=== PATIENT | female | born 1995 | race Caucasian/White ===

== ENCOUNTER 2023-08-02 15:57 | Outpatient (OUT) | payer OTHER, SELFPAY ==
[2023-08-04 04:07] LABS: Progesterone 0.4 ng/mL (.)
== END 2023-08-02 15:58 | disposition home or self-care (01) ==
LOC: LAB 16:02
PROVIDERS: PCP Internal Medicine; Visit Provider Midwife
DX: N92.6 Irregular menstruation, unspecified (principal)
CPT/HCPCS: 36415; 84144

== ENCOUNTER 2024-11-21 21:33 | Emergency (ER) | payer OTHER, SELFPAY ==
[2024-11-21 21:39] VITALS: BP 157/97; PULSE 91; TEMP 36.9; O2SAT 100; BMI 21.2
--- OUTSIDE RECORDS SUMMARY | 2024-11-21 21:57 | XMS_ITS | CCD ---
Author Organization [facility] Care Team Providers Care Document Management Analyst Name Role Phone SARATH, DR PULIDO Admitting Unavailable SARATH, DR PULIDO Attending Unavailable REQUEST, DR NONE LISTED Primary Care Unavaila alis PUENTES, DR WILLIS Hancock Consulting Unavailable SARATH, DR PULIDO Consulting Unavailable Kelle Dumont Unavailable Lurdes Breaux MD Primary Care Provider CINDA ARMSTRONG Admitting Unavailsebastian ARMSTRONG, CINDA BONDS Attending Unavailabl e SAEID, LURDES Primary Care Unavailable CINDA ARMSTRONG Referring Unavailabl e BREAUX, LURDES Primary Care Unavailable JAGDISH, CINDA BONDS Attending Unavailsebastian e JAGDISH, CINDA BONDS Referring Unavailabl e BREAUX, LURDES Primary Care Unavailable CINDA ARMSTRONG Referring Unavailabl e BREAUX, LURDES Primary Care Unavailable JAGDISH, CINDA BONDS Admitting Unavailsebastian ARMSTRONG, CINDA BONDS Attending Unavailabl e BREAUX, LURDES Primary Care Unavailable TOMA, DAVID Rios Admitting Unavailable POOL, DAVID Rios Attending Unavailable SAEID, LURDES Primary Care Unavailable CINDA ARMSTRONG Admitting Unavailsebastian ARMSTRONG, CINDA BONDS Attending Unavailabl e BREAUX, [facility] Primary Care Unavailable Medications Current Medications Medication Drug Class(es) Dates Sig (Normalized) Sig (Original) amoxicillin 500 mg oral capsule (1 source) Penicillin-class Antibacterial Start: 12-18-2022 take 1 capsule by mouth every eight hours Amoxicillin 500 MG 1 capsule Orally three times a day for 10 day(s) Dec, Active benzocaine 200 mg/ml / menthol 5 mg/ml topical spray (1 source) Standardized Chemical Allergen Start: 05-22-2024 Topical, PRN, Pain, Starting on Denise 05/22/24 at 1225, Apply to perineal area. Patient is capable and may self administer at bedside., 1 ml carboprost 0.25 mg/ml injection (1 source) Prostaglandin Analog Start: 05-22-2024 cephalexin 500 mg oral capsule (1 source) Cephalosporin Antibacterial Start: 06-02-2024 take 500 mg by mouth four times daily Cephalexin Active 500 MG PO Four times daily 40 7 June 02, 2024 12:00am w food docusate sodium 100 mg oral capsule (1 source) Start: 05-22-2024 lanolin 1000 mg/ml topical cream (1 source) Start: 05-22-2024 1 ml methylergonovine maleate 0.2 mg/ml injection (1 source) Ergot Derivative Start: 05-22-2024 miSOPROStol 0.1 mg oral tablet (1 source) Prostaglandin E1 Analog Start: 05-22-2024 ondansetron (ZOFRAN-ODT) disintegrating tablet 4 mg (1 source) Start: 05-22-2024 ondansetron (ZOFRAN-ODT) disintegrating tablet 4 mg Vit No.[id number] (Classic ) 28 mg iron- 800 mcg tablet (1 source) Start: 06-02-2024 take 1 tablet by mouth once daily Vit No.[id number] (Classic ) 28 mg iron- 800 mcg tablet Active TAB PO Daily June 02, 2024 12:00am Vit-Fe Fumarate-FA ( 19 PO) (2 sources) Vit-Fe Fumarate-FA ( 19 PO) Take by mouth Active 5 ml sodium chloride 9 mg/ml injection (2 sources) Start: 05-22-2024 Start: 05-20-2024 End: 05-22-2024 5-40 mL, IntraVENous, EVERY 12 HOURS SCHEDULED (2 times per day), First dose on Sun05/20/24 at 2100, Until Discontinued, For Line Patency: Peripheral IV = 5 mL; Midline or Central Line = 10 mL/lumen. If following IV push medication, administer flush at same rate as the IV push. Flush volume is determined by type of infusion therapy being given. For non-viscous solutions use: Peripheral IV = 5 mL Midline or Central Line = 10 mL/lumen For viscous solutions (i.e. blood components, parenteral nutrition, contrast media, or after obtaining blood sample) use: Peripheral IV = 10 mL Midline or Central Line = 20 mL/lumen, Labor and Delivery witch dudley 500 mg/ml medicated pad (1 source) Start: 05-22-2024 Topical, PRN, Hemorrhoids, Starting on Sun05/22/24 at 1225, Apply to perineal area. Patient is capable and may self administer at bedside., Completed/Discontinued Medications Medication Drug Class(es) Dates Sig (Normalized) Sig (Original) acetaminophen 500 mg oral tablet (2 sources) Start: 05-22-2024 1,000 mg, Oral, EVERY 6 HOURS PRN, Starting on Sun05/22/24 at 1225, Until Discontinued, Pain Mild (1-3), Pain Moderate (4-6), Maximum dose of acetaminophen is 4000mg from all sources in 24 hours. Alternate ibuprofen and acetaminophen every 4 hours., Start: 05-20-2024 End: 05-22-2024 650 mg, Oral, EVERY 4 HOURS PRN, Starting on Sun05/20/24 at 1957, Until Sun05/22/24 at 1225, Pain Mild (1-3), Fever, Fever >100.5 F (38 C), Maximum dose of acetaminophen is 4000 mg from all sources in 24 hours., Labor and Delivery calcium chloride 0.0014 meq/ml / potassium chloride 0.004 meq/ml / sodium chloride 0.103 meq/ml / sodium lactate 0.028 meq/ml injectable solution (1 source) Start: 05-20-2024 End: 05-22-2024 IntraVENous, at 125 mL/hr, CONTINUOUS, Starting on Sun05/20/24 at 2030, Labor and Delivery dinoprostone 10 mg drug implant (2 sources) Prostaglandin Analog Start: 05-21-2024 End: 05-21-2024 10 mg, Vaginal, ONCE, 1 dose, On Sun05/21/24 at 1000, Please select a reason the therapeutic interchange was not accepted: Other (Please Comment), Comment why not applicable: IUGR - intrauterine growth restriction Start: 05-20-2024 End: 05-20-2024 10 mg, Vaginal, ONCE, 1 dose , On Sun05/20/24 at 2030, Please select a reason the therapeutic interchange was not accepted: Other (Please Comment), Comment why not applicable: IUGR - intrauterine growth restriction hydrOXYzine pamoate 50 mg oral capsule (1 source) Antihistamine Start: 05-21-2024 End: 05-21-2024 take 1 dose by mouth once 50 mg, Oral, ONCE, 1 dose, On Sun05/21/24 at 2130 Start: 05-21-2024 End: 05-21-2024 take 1 dose by mouth once 50 mg, Oral, ONCE, 1 dose, O n Sun05/21/24 at 2130 ibuprofen 800 mg oral tablet (1 source) Nonsteroidal Anti-inflammatory Drug Start: 05-22-2024 800 mg, Oral, CARYN RY 8 HOURS PRN, Starting on Denise 05/22/24 at 1225, Until Discontinued, Pain Mild (1-3), Pain Moderate (4-6), Once tolerating PO, discontinue Ketorolac and begin ibuprofen 8 hours after the final dose of Ketotolac. Alternate ibuprofen and acetaminophen every 4 hours., lidocaine hydrochloride 20 mg/ml mucous membrane topical solution (2 sources) Antiarrhythmic, Amide Local Anesthetic Start: 05-22-2024 End: 05-22-2024 15 mL, Vaginal, ONCE, 1 dose, On Sun05/22/24 at 1100 Start: 05-22-2024 End: 05-22-2024 1 dose, Starting on Sun at 1041, Until Denise 05/22/24 at 1039, Sisi Dias: cabinet override, Sisi Dias: cabinet override oxytocin (PITOCIN) 30 units in 500 mL infusion (2 sources) Start: 05-22-2024 End: 05-22-2024 1-24 quoc-units/min (1-24 m L/hr), IntraVENous, CONTINUOUS, Starting on Sun05/22/24 at 0500, Until Denise 05/22/24 at 1225, Begin infusion at 1 quoc-unit/min (1 quoc-unit per min = 1 mL per hour) Then increase by 2 quoc-units/min as needed, no faster than every 30 minutes, until labor is achieved. Labor is defined as contractions every 2-3 minutes with cervical changes or Holden units (MVU) greater than 200 in a 10-minute window. Maximum infusion rate: 20 quoc-unit/min. Contact provider if maximum rate does not achieve desired response. Provider may order alternative titration goal or other clinically appropriate goal of titration rate (s). Smaller titration increments of 1 quoc-units/min, not faster than every 30 minutes, may be used when approaching therapeutic goal. Start: 05-20-2024 oxytocin (CHELLE MIGUEL) 30 units in 500 mL infusion Problems Active Problems Problem Classification Problem Date Documented Date Episodic/Chronic Menstrual disorders (6 sources) Irregular menstruation, unspecified; Translations: [Amenorrhea] Onset: 06-17-2022 Chronic Other and delivery including normal (11 sources) Normal labor; Translations: [Encounter for full-term uncomplicated delivery] Onset: 04-28-2024 Resolved: 05-24-2024 05-24-2024 Episodic Other upper respiratory infections (2 sources) Acute pharyngitis, unspecified; Translations: [Streptococcal pharyngitis] Episodic Ovarian cyst (1 source) Other ovarian cyst, right side; Translations: [OTHER OVARIAN CYST RIGHT SIDE] Onset: 06-20-2022 Episodic Unclassified (2 sources) Non-stress Test; Translations: [Non-stress Test] Onset: 05-08-2024 Past or Other Problems Problem Classification Problem Date Documented Da te Episodic/Chronic Abdominal pain (2 sources) Unspecified abdominal pain; Translations: [Unspecified abdominal pain] Onset: 04-24-2024 Episodic Other complications of (2 sources) Complication of , childbirth and/or the puerperium; Translations: [Other specified related conditions, unspecified trimester] Onset: 04-24-2024 Resolved: 05-24-2024 05-24-2024 Episodic Other complications of (2 sources) Poor growth affecting management; Translations: [Maternal care for other known or suspected poor growth, third trimester, not applicable or unspecified] Onset: 05-09-2024 Resolved: 05-24-2024 05-24-2024 Episodic Other complications of (2 sources) Outcome of delivery, unspecified; Translations: [Outcome of delivery, unspecified] Onset: 05-20-2024 Episodic Other complications of (2 sources) Other specified related conditions, unspecified trimester; Translations: [Other specified related conditions, unspecified trimester] Onset: 04-24-2024 Episodic Residual codes; unclassified (1 source) 38 weeks gestation of ; Translations: [38 weeks gestation of ] Onset: 05-08-2024 Episodic Results Test Name Value Interpretation Reference Range Facility Chlamydia/GC DNA, Uron 11-13 Chlamydia Probe, Ur Negative Normal NEG [facility] Comment on above: Result Comment: CHLA MYDIA TRACHOMATIS DNA not detected by nucleic acid amplification. This test is intended for medical purposes only and is not valid for the evaluation of suspected sexual abuse or for other forensic purposes. In certain contexts, culture may be required to meet applicable laws and regulations for diagnosis of C. trachomatis and N. gonorrhoeae infections. Per 2014 CDC recommendations, this test does not include confirmation of positive results by an alternative nucleic acid target. Performed By: #### U CGP #### [address] [id number] Coffee Blender: Omkar Shah MD Gonorrhea Probe, Ur Negative Normal NEG [facility] Comment on above: Result Comment: NEIS SERIA GONORRHOEAE DNA not detected by nucleic acid amplification. This test is intended for medical purposes only and is not valid for the evaluation of suspected sexual abuse or for other forensic purposes. In certain contexts, culture may be required to meet applicable laws and regulations for diagnosis of C. trachomatis and N. gonorrhoeae infections. Per 2014 CDC recommendations, this test does not include confirmation of positive results by an alternative nucleic acid target. Performed By: #### U CGP #### [address] [id number] Coffee Blender: Omkar Shah MD Cult,Urineon 11-13-2024 Cult,Urine Specimen Description .CLEAN CATCH URINE Special Requests Site: Urine Culture NO SIGNIFICANT GROWTH Report Status FINAL 11/13/2024 Normal [facility] Comment on above: Performed By: #### U RC #### [address] [id number] Coffee Blender: Omkar Shah MD [facility] [address] [place] [address] Coffee Blender: Willis Hough MD Profileon T.pallidum Ab Screen Non-Reactive Normal NR [facility] Comment on above: Result Comment: T. pallidum antibodies are not detected. There is no serological evidence of infection with T. pallidum (early primary syphilis cannot be excluded). Retest in 2-4 weeks if syphilis is clinically suspect. Performed By: #### P RENAT #### [facility] [address] [place] [address] Coffee Blender: Omkar Shah MD [facility] [address] [place] [address] Coffee Blender: Willis Hough MD Profile Ion 025 Basophils (Bld) [#/Vol] 0.04 10*3/uL [facility] Basophils/100 WBC (Bld) 1 % 0 - 2 % B on [facility] Eosinophils (Bld) [#/Vol] 0.03 10*3/uL [facility] Eosinophils/100 WBC (Bld) 0 % Low 1 - 4 % [facility] Erythrocyte distribution width (RBC) [Ratio] 12.4 % 11.8 - 14.4 % [facility] HBV surface Ag IA Ql Non-Reactive NONREACTIVE B [facility] Hematocrit (Bld) [Volume fraction] 37.5 % 36.3 - 47.1 % [facility] Hemoglobin (Bld) [Mass/Vol] 13.1 g/dL 11.9 - 15.1 g/dL [facility] Immature granulocytes (Bld) [#/Vol] 0.03 10*3/uL [facility] Immature granulocytes/100 WBC (Bld) 0 % 0 [facility] Interpretation and review of laboratory results Abnormal [facility] Lymphocytes/100 WBC (Bld) 18 % Low 24 - 43 % [facility] Lymphocytes/100 WBC (Bld) 1.56 % [facility] MCH (RBC) [Entitic mass] 30.1 pg 25. 2 - 33.5 pg [facility] MCHC (RBC) [Mass/Vol] 34.9 g/dL High 28.4 - 34.8 g/dL [facility] MCV (RBC) [Entitic vol] 86.2 fL 82.6 - 102.9 fL [facility] Monocytes/100 WBC (Bld) 6 % 3 - 12 % B on [facility] Monocytes/100 WBC (Bld) 0.53 % B on [facility] Neutrophils/100 WBC (Bld) 75 % High 36 - 65 % [facility] Nucleated RBC/100 WBC (Bld) [Ratio] 0.0 % 0.0 per 100 WBC [facility] Platelet mean volume (Bld) [Entitic vol] 11.0 fL 8.1 - 13.5 fL [facility] Platelets (Bld) [#/Vol] 307 10*3/uL [facility] RBC (Bld) [#/Vol] 4.35 10*6/uL 3.95 - 5.1 1 m/uL [facility] Rubella virus IgG IA Ql 49.7 IU/mL B on [facility] Comment on above: <10 NON REACTIVE Negative for Anti-Rubella IgG >=10 REACTIVE Positive for Anti Rubella IgG The presence of IgG antibody to Rubella virus is an indication of previous exposure either by prior infection or vaccination. Segmented neutrophils/100 WBC (Bld) 6.30 % [facility] T. pallidum Ab IA Ql (S) Non-Reactive NONREACTI VE [facility] Comment on above: T. pallidum antibodies are not detected. There is no serological evidence of infection with T. pallidum (early primary syphilis cannot be excluded). Retest in 2-4 weeks if syphilis is clinically suspect. WBC other (Bld) [#/Vol] 8.5 B on [facility] HIV Ag/Abon 11-12-2024 HIV Ag/Ab Non-Reactive Normal NR [facility] Comment on above: Result Comment: No l aboratory evidence of HIV infection. If acute HIV infection is suspected, consider testing for HIV-1 RNA. Performed By: #### R OGBS #### [facility] [address] [place] [address] Coffee Blender: Omkar Shah MD [facility] [address] [place] [place] [address] Coffee Blender: Willis Hough MD HIV Screenon 11-12-2024 HIV 1+2 Ab+HIV1 p24 Ag IA Ql Non-Reactive NONREACTIVE [facility] Comment on above: No laboratory eviden ce of HIV infection. If acute HIV infection is suspected, consider testing for HIV-1 RNA. [facility] Hep C Abon 11-12-2024 Hep C Ab Non-Reactive Normal [facility] Comment on above: Result Comment: The hepatitis C procedure used in our laboratory is a Chemiluminescent test specific for three recombinant HCV antigens. A negative anti-HCV result indicates that the antibodies to hepatitis C virus are not present at this time. Individuals with reactive anti-HCV should be considered infected and infectious until proven otherwise. Confirmation of all equivocal or reactive results is recommended by ordering HCV RNA by PCR. Performed By: #### A HCV, HIVCMB #### [facility] [employer] [address] [place] [id number] Coffee Blender: Omkar Shah MD Hepatitis C Antibodyon 11-12 HCV Ab IA Ql Non-Reactive NONREACTIVE [facility] Comment on above: The hepatitis C procedure used in our laboratory is a Chemiluminescent test specific for three recombinant HCV antigens. A negative anti-HCV result indicates that the antibodies to hepatitis C virus are not present at this time. Individuals with reactive anti-HCV should be considered infected and infectious until proven otherwise. Confirmation of all equivocal or reactive results is recommended by ordering HCV RNA by PCR. [facility] Profileon Hep B Surf Ag Non-Reactive Normal [facility] Comment on above: Performed By: #### P RENAT #### [facility] [employer] [facility] [place], [place] [id number] Coffee Blender: Omkar Shah MD [address] [place] [address] Coffee Blender: Willis Hough MD Rubella Ab, IgG 49.7 IU/mL [facility] Comment on above: Result Comment: <10 NON REACTIVE Negative for Anti-Rubella IgG >=10 REACTIVE Positive for Anti Rubella IgG The presence of IgG antibody to Rubella virus is an indication of previous exposure either by prior infection or vaccination. Performed By: #### P RENAT #### [address] [address] Coffee Blender: Omkar Shah MD [address] [place] [id number] Coffee Blender: Willis Hough MD Abs. Basophil 0.04 k/uL Normal 0.00-0.20 [facility] Comment on above: Performed By: #### P RENAT #### [address] [address] Coffee Blender: Omkar Shah MD [address] [place] [address] Coffee Blender: Willis Hough MD Abs.Imm.Granulocyte 0.03 k/uL Normal 0.00-0.30 [facility] Comment on above: Performed By: #### P RENAT #### [address] [address] Coffee Blender: Omkar Shah MD [address] [place] [address] Coffee Blender: Willis Hough MD Abs.Neutrophil (Seg) 6.30 k/uL Normal 1.50-8.10 [facility] Comment on above: Performed By: #### P RENAT #### [address] [address] Coffee Blender: Omkar Shah MD [address] [place] [address] Coffee Blender: Willis Hough MD Basophils/100 WBC (Bld) 1 % Normal 0-2 [facility] Comment on above: Performed By: #### P RENAT #### [address] [address] Coffee Blender: Omkar Shah MD [address] [place] [id number] Coffee Blender: Willis Hough MD Eosinophils (Bld) [#/Vol] 0.03 10*3/uL Normal 0.00-0.44 [facility] Comment on above: Performed By: #### P RENAT #### [address] [address] Coffee Blender: Omkar Shah MD [address] [place] [phone] Coffee Blender: Willis Hough MD Eosinophils/100 WBC (Bld) 0 % Low 1-4 [facility] Comment on above: Performed By: #### P RENAT #### [address] [address] Coffee Blender: Omkar Shah MD [address] [place] [phone] Coffee Blender: Willis Hough MD Erythrocyte distribution width (RBC) [Ratio] 12.4 % Normal 11.8-14.4 [facility] Comment on above: Performed By: #### P RENAT #### [address] [address] Coffee Blender: Omkar Shah MD [address] [place] [phone] Coffee Blender: Willis Hough MD Hematocrit (Bld) [Volume fraction] 37.5 % Normal 36.3-47.1 [facility] Comment on above: Performed By: #### P RENAT #### [address] [address] Coffee Blender: Omkar Shah MD [address] [place] [phone] Coffee Blender: Willis Hough MD Hemoglobin (Bld) [Mass/Vol] 13.1 g/dL Normal 11.9-15.1 [facility] Comment on above: Performed By: #### P RENAT #### [place] [id number] [place] [address] Coffee Blender: Omkar Shah MD [facility] [address] [place] [address] Dr. [place] [phone] Coffee Blender: Willis Hough MD Immature granulocytes/100 WBC (Bld) 0 % Normal 0 [facility] Comment on above: Performed By: #### P RENAT #### [address] [address] Coffee Blender: Omkar Shah MD [facility] [address] [place] [address] Dr. [place] [phone] Coffee Blender: Willis Hough MD Lymphocytes (Bld) [#/Vol] 1.56 10*3/uL Normal 1.10-3.70 [facility] Comment on above: Performed By: #### P RENAT #### [address] [address] Coffee Blender: Omkar Shah MD [facility] [address] [place] [address] [place] [address] Coffee Blender: Willis Hough MD Lymphocytes/100 WBC (Bld) 18 % Low 24-43 [facility] Comment on above: Performed By: #### P RENAT #### [address] [address] Coffee Blender: Omkar Shah MD [facility] [address] [place] [address] [place] [address] Coffee Blender: Willis Hough MD MCH (RBC) [Entitic mass] 30.1 pg Normal 25.2-33.5 [facility] Comment on above: Performed By: #### P RENAT #### [address] [address] Coffee Blender: Omkar Shah MD [address] [place] [phone] Coffee Blender: Willis Hough MD MCHC (RBC) [Mass/Vol] 34.9 g/dL High 28.4-34.8 [facility] Comment on above: Performed By: #### P RENAT #### [address] [address] Coffee Blender: Omkar Shah MD [address] [place] [phone] Coffee Blender: Willis Hough MD MCV (RBC) [Entitic vol] 86.2 fL Normal 82.6-102.9 [facility] Comment on above: Performed By: #### P RENAT #### [address] [address] Coffee Blender: Omkar Shah MD [address] [place] [address] Coffee Blender: Willis Hough MD Monocytes (Bld) [#/Vol] 0.53 10*3/uL Normal 0.10-1.20 [facility] Comment on above: Performed By: #### P RENAT #### [address] [address] Coffee Blender: Omkar Shah MD [address] [place] [phone] Coffee Blender: Willis Hough MD Monocytes/100 WBC (Bld) 6 % Normal 3-12 [facility] Comment on above: Performed By: #### P RENAT #### [address] [address] Coffee Blender: Omkar Shah MD [address] [place] [phone] Coffee Blender: Willis Hough MD Neutrophil (Seg) 75 % High 36-65 [facility] Comment on above: Performed By: #### P RENAT #### [place] [id number] [place] [address] Coffee Blender: Omkar Shah MD [address] [place] [address] Coffee Blender: Willis Hough MD NRBC Automated 0.0 per 100 WBC Normal 0.0 [facility] Comment on above: Performed By: #### P RENAT #### [address] [address] Coffee Blender: Omkar Shah MD [address] [place] [address] Coffee Blender: Willis Hough MD Platelet mean volume (Bld) [Entitic vol] 11.0 fL Normal 8.1-13.5 [facility] Comment on above: Performed By: #### P RENAT #### [address] [address] Coffee Blender: Omkar Shah MD [address] [place] [phone] Coffee Blender: Willis Hough MD Platelets (Bld) [#/Vol] 307 10*3/uL Normal 138-453 [facility] Comment on above: Performed By: #### P RENAT #### [address] [address] Coffee Blender: Omkar Shah MD [address] [place] [phone] Coffee Blender: Willis Hough MD RBC (Bld) [#/Vol] 4.35 10*6/uL Normal 3.95-5.11 [facility] Comment on above: Performed By: #### P RENAT #### [address] [address] Coffee Blender: Omkar Shah MD [address] [place] [phone] Coffee Blender: Willis Hough MD WBC (Bld) [#/Vol] 8.5 10*3/uL Normal 3.5-11.3 [facility] Comment on above: Performed By: #### P YESSY #### [facility] [address] [place] [address] Coffee Blender: Omkar Shah MD [facility] [address] [place] [address] Coffee Blender: Willis Hough MD CBC auto differentialon 09-0 Basophils (Bld) [#/Vol] B ON [facility] Basophils/100 WBC (Bld) 0 % 0 - 2 % B ON [facility] Eosinophils (Bld) [#/Vol] 0.04 10*3/uL [facility] Eosinophils/100 WBC (Bld) 0 % Low 1 - 4 % [facility] Erythrocyte distribution width (RBC) [Ratio] 12.6 % 11.8 - 14.4 % [facility] Hematocrit (Bld) [Volume fraction] 36.7 % 36.3 - 47.1 % [facility] Hemoglobin (Bld) [Mass/Vol] 13.0 g/dL 11.9 - 15.1 g/dL [facility] Immature granulocytes (Bld) [#/Vol] [facility] Immature granulocytes/100 WBC (Bld) 0 % 0 [facility] Interpretation and review of laboratory results Abnormal [facility] Lymphocytes/100 WBC (Bld) 22 % Low 24 - 43 % [facility] Lymphocytes/100 WBC (Bld) 1.99 % [facility] MCH (RBC) [Entitic mass] 31.3 pg 25. 2 - 33.5 pg [facility] MCHC (RBC) [Mass/Vol] 35.4 g/dL High 28.4 - 34.8 g/dL [facility] MCV (RBC) [Entitic vol] 88.2 fL 82.6 - 102.9 fL [facility] Monocytes/100 WBC (Bld) 6 % 3 - 12 % [facility] Monocytes/100 WBC (Bld) 0.57 % [facility] Neutrophils/100 WBC (Bld) 71 % High 36 - 65 % [facility] Nucleated RBC/100 WBC (Bld) [Ratio] 0.0 % 0.0 per 100 WBC [facility] Platelet mean volume (Bld) [Entitic vol] 10.4 fL 8.1 - 13.5 fL [facility] Platelets (Bld) [#/Vol] 227 10*3/uL [facility] RBC (Bld) [#/Vol] 4.16 10*6/uL 3.95 - 5.1 1 m/uL [facility] Segmented neutrophils/100 WBC (Bld) 6.56 % [facility] WBC other (Bld) [#/Vol] 9.2 B ON [facility] CBC with Diffon 05-20-2024 Abs. Basophil <0.03 Normal 0.00-0.20 [facility] Comment on above: Performed By: #### R OGBS #### [id number] [place] [address] Coffee Blender: Omkar Shah MD [facility] [address] [place] [address] Dr. [place] [phone] Coffee Blender: Willis Hough MD Abs.Imm.Granulocyte <0.03 Normal 0.00-0.30 [facility] Comment on above: Performed By: #### R OGBS #### [facility] [address] [place] [address] Coffee Blender: Omkar Shah MD [facility] [address] [place] [address] [place] [address] Coffee Blender: Willis Hough MD Abs.Neutrophil (Seg) 6.56 k/uL Normal 1.50-8.10 [facility] Comment on above: Performed By: #### R OGBS #### [address] [place] [address] Coffee Blender: Omkar Shah MD [address] [place] [phone] Coffee Blender: Willis Hough MD Basophils/100 WBC (Bld) 0 % Normal 0-2 [facility] Comment on above: Performed By: #### R OGBS #### [address] [address] Coffee Blender: Omkar Shah MD [address] [place] [phone] Coffee Blender: Willis Hough MD Eosinophils (Bld) [#/Vol] 0.04 10*3/uL Normal 0.00-0.44 [facility] Comment on above: Performed By: #### R OGBS #### [address] [address] Coffee Blender: Omkar Shah MD [address] [place] [phone] Coffee Blender: Willis Hough MD Eosinophils/100 WBC (Bld) 0 % Low 1-4 [facility] Comment on above: Performed By: #### R OGBS #### [address] [address] Coffee Blender: Omkar Shah MD [address] [place] [phone] Coffee Blender: Willis Hough MD Erythrocyte distribution width (RBC) [Ratio] 12.6 % Normal 11.8-14.4 [facility] Comment on above: Performed By: #### R OGBS #### [address] [address] Coffee Blender: Omkar Shah MD [address] [place] [phone] Coffee Blender: Willis Hough MD Hematocrit (Bld) [Volume fraction] 36.7 % Normal 36.3-47.1 [facility] Comment on above: Performed By: #### R OGBS #### [facility] [address] [place] [address] Coffee Blender: Omkar Shah MD [facility] [address] [place] [address] Dr. [place], [place] [phone] Coffee Blender: Willis Hough MD Hemoglobin (Bld) [Mass/Vol] 13.0 g/dL Normal 11.9-15.1 [facility] Comment on above: Performed By: #### R OGBS #### [address] [address] Coffee Blender: Omkar Shah MD [facility] [address] [place] [address] [place] [address] Coffee Blender: Willis Hough MD Immature granulocytes/100 WBC (Bld) 0 % Normal 0 [facility] Comment on above: Performed By: #### R OGBS #### [address] [address] Coffee Blender: Omkar Shah MD [facility] [address] [place] [address] Dr. [place] [phone] Coffee Blender: Willis Hough MD Lymphocytes (Bld) [#/Vol] 1.99 10*3/uL Normal 1.10-3.70 [facility] Comment on above: Performed By: #### R OGBS #### [address] [address] Coffee Blender: Omkar Shah MD [facility] [address] [place] [address] Dr. [place] [phone] Coffee Blender: Willis Hough MD Lymphocytes/100 WBC (Bld) 22 % Low 24-43 [facility] Comment on above: Performed By: #### R OGBS #### [address] [address] Coffee Blender: Omkar Shah MD [facility] [address] [place] [address] Dr. [place] [phone] Coffee Blender: Willis Hough MD MCH (RBC) [Entitic mass] 31.3 pg Normal 25.2-33.5 [facility] Comment on above: Performed By: #### R OGBS #### [address] [id number] Coffee Blender: mOkar Shah MD [address] [place] [phone] Coffee Blender: Willis Hough MD MCHC (RBC) [Mass/Vol] 35.4 g/dL High 28.4-34.8 [facility] Comment on above: Performed By: #### R OGBS #### [address] [address] Coffee Blender: Omkar Shah MD [address] [place] [phone] Coffee Blender: Willis Hough MD MCV (RBC) [Entitic vol] 88.2 fL Normal 82.6-102.9 [facility] Comment on above: Performed By: #### R OGBS #### [address] [address] Coffee Blender: Omkar Shah MD [address] [place] [phone] Coffee Blender: Willis Hough MD Monocytes (Bld) [#/Vol] 0.57 10*3/uL Normal 0.10-1.20 [facility] Comment on above: Performed By: #### R OGBS #### [address] [address] Coffee Blender: Omkar Shah MD [address] [place] [address] Coffee Blender: Willis Hough MD Monocytes/100 WBC (Bld) 6 % Normal 3-12 [facility] Comment on above: Performed By: #### R OGBS #### [address] [place] [address] Coffee Blender: Omkar Shah MD [facility] [address] [place] [address] Dr. [place], [place] [phone] Coffee Blender: Willis Hough MD Neutrophil (Seg) 71 % High 36-65 [facility] Comment on above: Performed By: #### R OGBS #### [address] [address] Coffee Blender: Omkar Shah MD [facility] [address] [place] [address] Dr. [place] [phone] Coffee Blender: Willis Hough MD NRBC Automated 0.0 per 100 WBC Normal 0.0 [facility] Comment on above: Performed By: #### R OGBS #### [address] [address] Coffee Blender: Omkar Shah MD [facility] [address] [place] [address] Dr. [place] [phone] Coffee Blender: Willis Hough MD Platelet mean volume (Bld) [Entitic vol] 10.4 fL Normal 8.1-13.5 [facility] Comment on above: Performed By: #### R OGBS #### [address] [address] Coffee Blender: Omkar Shah MD [facility] [address] [place] [address] [place] [address] Coffee Blender: Willis Hough MD Platelets (Bld) [#/Vol] 227 10*3/uL Normal 138-453 [facility] Comment on above: Performed By: #### R OGBS #### [address] [address] Coffee Blender: Omkar Shah MD [facility] [address] [place] [address] [place] [address] Coffee Blender: Willis Hough MD RBC (Bld) [#/Vol] 4.16 10*6/uL Normal 3.95-5.11 [facility] Comment on above: Performed By: #### R OGBS #### [facility] [address] [place] [address] Coffee Blender: Omkar Shah MD [facility] [address] [place] [address] [place] [address] Coffee Blender: Willis Hough MD WBC (Bld) [#/Vol] 9.2 10*3/uL Normal 3.5-11.3 [facility] Comment on above: Performed By: #### R OGBS #### [facility] [address] [place] [address] Coffee Blender: Omkar Shah MD [facility] [address] [place] [address] [place] [address] Coffee Blender: Willis Hough MD TYPE AND SCREENon 05-20-2024 ABO and Rh group Nom (Bld) Blood group O Rh(D) positive [facility] Arm Band Number [id number] [facility] Blood Bank Sample Expiration 05/23/2024,2359 [facility] Blood group antibodies identified Nom Negative [facility] Type + Screenon 05-20-2024 Type + Screen Sample Expiration 05/23/2024,2359 Arm Band Number [id number] ABO/Rh(D) O POSITIVE Antibody Screen NEGATIVE Normal [facility] Comment on above: Performed By: #### T YS #### [facility] [address] [place] [address] [place] [address] Coffee Blender: Willis Hough MD US BIOPHYS PROFILE W N ON STRESSon 05-17-2024 US BIOPHYS PROFILE W NON STRESS EXAMINATION: 05/12/2024. 05/17/2024 TECHNIQUE: ULTRASOUND BIOPHYSICAL PROFILE WITH NON-STRESS TEST COMPARISON: 05/08/2024. 05/12/2024. HISTORY: ORDERING SYSTEM PROVIDED HISTORY: IUGR TECHNOLOGIST PROVIDED HISTORY: IUGR FINDINGS: BIOPHYSICAL PROFILE: Tone: 2/2 Gross Body: 2/2 Breathin/2 Qualitative Fluid: 2/2 Biophysical Profile Score: 8/8 OTHER FINDINGS: Single intrauterine in cephalic presentation. cardiac activity at 130 beats per minute. Amniotic fluid volume is normal with an index of 14.4 cm IMPRESSION: biophysical profile score 8 of 8. Interpreted by: Willis Draper MD Signed by: Willis Draper MD 05/17/24 Final result Normal [facility] US OB 14 PLUS WEEKS SINGLE O R FIRST GESTATIONon 05-09-2024 US OB 14 PLUS WEEKS SINGLE OR FIRST GESTATION EXAMINATION: TRANSABDOMINAL SECOND/THIRD TRIMESTER OBSTETRIC PELVIC ULTRASOUND WITH COLOR DOPPLER FLOW 05/08/2024 2:22 pm TECHNIQUE: TRANSABDOMINAL PELVIC ULTRASOUND WITH COLOR DOPPLER FLOW COMPARISON: 03/13/2024 HISTORY: ORDERING SYSTEM PROVIDED HISTORY: 38 weeks gestation of TECHNOLOGIST PROVIDED HISTORY: 38 wk gestation for EFW FINDINGS: GENERAL OBSERVATIONS: : Single CARDIAC ACTIVITY: Yes HEART RATE: 121 beats per minute BODY AND LIMB MOVEMENTS: Yes POSITION: Cephalic PLACENTA LOCATION: Anterior BART: 13.7 ESTIMATED AGE: BY LMP: 37 weeks, 5 days CURRENT US: 36 weeks, 1 day ESTIMATED WEIGHT: 2516 g grams, 5%tile MEASUREMENTS: BPD: 9.36 cm, 38 weeks, 1 day; 79.7%tile HEAD CIRCUMFERENCE: 33.69 cm, 38 weeks, 4 days; 50.1%tile ABD. CIRCUMFERENCE: 29.86 cm, 33 weeks, 6 days; <3%tile FEMUR LENGTH: 6.62 cm, 34 weeks, 1 day; <3%tile FL/BPD 70.76 (71.0-87.0) HC/AC 01.13 ( 0.92-1.08) FL/HC 19.66 (20.20-22.17) CERVICAL LENGTH: 4.09 cm IMPRESSION: A single live intrauterine with estimated gestational age of 36 weeks, 1 day by ultrasound. Age by dates is 37 weeks, 5 days. Asymmetric growth in head and body measurements as noted above. The estimated weight is 2516 g. Interpreted by: Trevor Trevino MD Signed by: Trevor Trevino MD 05/09/24 Final result Normal [facility] Rule Out Grp.B Strepon 05-02 Rule Out Grp.B Strep Specimen Description .VAGINA Special Requests Site: Genital Culture NEGATIVE FOR GROUP B STREPTOCOCCI Report Status FINAL 05/02/2024 Normal [facility] Comment on above: Performed By: #### R OGBS #### [facility] [address] [place] [address] Coffee Blender: Omkar Shah MD [facility] [address] [place] [address] [place] [address] Coffee Blender: Willis Hough MD CBC with Diffon 04-24-2024 Abs. Basophil <0.03 Normal 0.00-0.20 [facility] Comment on above: Performed By: #### C DP, CP #### [address] [place], [place] [phone] Coffee Blender: Willis Hough MD Abs.Imm.Granulocyte <0.03 Normal 0.00-0.30 [facility] Comment on above: Performed By: #### C DP, CP #### [address] [place], [place] [phone] Coffee Blender: Willis Hough MD Abs.Neutrophil (Seg) 6.44 k/uL Normal 1.50-8.10 [facility] Comment on above: Performed By: #### C DP, CP #### [address] [place] [address] Coffee Blender: Willis Hough MD Basophils/100 WBC (Bld) 0 % Normal 0-2 [facility] Comment on above: Performed By: #### C DP, CP #### [address] [place], [place] [phone] Coffee Blender: Willis Hough MD Eosinophils (Bld) [#/Vol] 0.05 10*3/uL Normal 0.00-0.44 [facility] Comment on above: Performed By: #### C DP, CP #### [facility] [address] [place] [address] Dr. [place], [place] [phone] Coffee Blender: Willis Hough MD Eosinophils/100 WBC (Bld) 1 % Normal 1-4 [facility] Comment on above: Performed By: #### C DP, CP #### [address] [place], [facility]83 Coffee Blender: Willis Hough MD Erythrocyte distribution width (RBC) [Ratio] 12.7 % Normal 11.8-14.4 [facility] Comment on above: Performed By: #### C DP, CP #### [address] [place], [facility]83 Coffee Blender: Willis Hough MD Hematocrit (Bld) [Volume fraction] 38.7 % Normal 36.3-47.1 [facility] Comment on above: Performed By: #### C DP, CP #### [address] [place], [facility]83 Coffee Blender: Willis Hough MD Hemoglobin (Bld) [Mass/Vol] 13.8 g/dL Normal 11.9-15.1 [facility] Comment on above: Performed By: #### C DP, CP #### [address] [place], [facility]83 Coffee Blender: Willis Hough MD Immature granulocytes/100 WBC (Bld) 0 % Normal 0 [facility] Comment on above: Performed By: #### C DP, CP #### [facility] [address] [place] [address] Dr. [place], [facility]83 Coffee Blender: Willis Hough MD Lymphocytes (Bld) [#/Vol] 1.78 10*3/uL Normal 1.10-3.70 [facility] Comment on above: Performed By: #### C DP, CP #### [address] [place], [facility]83 Coffee Blender: Willis Hough MD Lymphocytes/100 WBC (Bld) 20 % Low 24-43 [facility] Comment on above: Performed By: #### C DP, CP #### [address] [place] [address] Coffee Blender: Willis Hough MD MCH (RBC) [Entitic mass] 31.4 pg Normal 25.2-33.5 [facility] Comment on above: Performed By: #### C DP, CP #### [address] [place] [address] Coffee Blender: Willis Hough MD MCHC (RBC) [Mass/Vol] 35.7 g/dL High 28.4-34.8 [facility] Comment on above: Performed By: #### C DP, CP #### [address] [place] [address] Coffee Blender: Willis Hough MD MCV (RBC) [Entitic vol] 88.2 fL Normal 82.6-102.9 [facility] Comment on above: Performed By: #### C DP, CP #### [address] [place] [address] Coffee Blender: iWllis Hough MD Monocytes (Bld) [#/Vol] 0.49 10*3/uL Normal 0.10-1.20 [facility] Comment on above: Performed By: #### C DP, CP #### [address] [place], [place] [phone] Coffee Blender: Willis Hough MD Monocytes/100 WBC (Bld) 6 % Normal 3-12 [facility] Comment on above: Performed By: #### C DP, CP #### [address] [place] [address] Coffee Blender: Willis Hough MD Neutrophil (Seg) 73 % High 36-65 [facility] Comment on above: Performed By: #### C DP, CP #### [facility] [address] [place], [place] [phone] Coffee Blender: Willis Hough MD NRBC Automated 0.0 per 100 WBC Normal 0.0 [facility] Comment on above: Performed By: #### C DP, CP #### [facility] [address] [place], [facility]83 Coffee Blender: Willis Hough MD Platelet mean volume (Bld) [Entitic vol] 10.2 fL Normal 8.1-13.5 [facility] Comment on above: Performed By: #### C DP, CP #### [facility] [address] [place], [facility]83 Coffee Blender: Willis Hough MD Platelets (Bld) [#/Vol] 200 10*3/uL Normal 138-453 [facility] Comment on above: Performed By: #### C DP, CP #### [address] [place], [facility]83 Coffee Blender: Willis Hough MD RBC (Bld) [#/Vol] 4.39 10*6/uL Normal 3.95-5.11 [facility] Comment on above: Performed By: #### C DP, CP #### [address] [place], [facility]83 Coffee Blender: Willis Hough MD WBC (Bld) [#/Vol] 8.8 10*3/uL Normal 3.5-11.3 [facility] Comment on above: Performed By: #### C DP, CP #### [facility] [address] [place] [address] Coffee Blender: Willis Hough MD Comp Metabolic Profon 2023 Albumin [Mass/Vol] 3.6 g/dL Normal 3.5-5.2 [facility] Comment on above: Performed By: #### C DP, CP #### [facility] [address] [place], [place] [phone] Coffee Blender: Willis Hough MD Albumin/Glob Ratio 1.1 Normal 1.0-2.5 [facility] Comment on above: Performed By: #### C DP, CP #### [facility] [address] [place], [place] [phone] Coffee Blender: Willis Hough MD Alkaline Phos 122 U/L High 35-104 [facility] Comment on above: Performed By: #### C DP, CP #### [facility] [address] [place], [place] [phone] Coffee Blender: Willis Hough MD ALT [Catalytic activity/Vol] 11 U/L Normal 5-33 [facility] Comment on above: Performed By: #### C DP, CP #### [facility] [address] [place], [place] [phone] Coffee Blender: Willis Hough MD Anion gap [Moles/Vol] 13 mmol/L Normal 9-17 [facility] Comment on above: Performed By: #### C DP, CP #### [facility] [address] [place] [address] [place]. [place], [place] [phone] Coffee Blender: Willis Hough MD AST [Catalytic activity/Vol] 19 U/L Normal <32 [facility] Comment on above: Performed By: #### C DP, CP #### [facility] [address] [place], [place] [phone] Coffee Blender: Willis Hough MD Bilirubin [Mass/Vol] 0.3 mg/dL Normal 0.3-1.2 [facility] Comment on above: Performed By: #### C DP, CP #### [facility] [address] [place], [place] [phone] Coffee Blender: Willis Hough MD BUN/CRE Ratio 14 Normal 9-20 [facility] Comment on above: Performed By: #### C DP, CP #### [facility] [address] [place], [place] [phone] Coffee Blender: Willis Hough MD Calcium [Mass/Vol] 8.9 mg/dL Normal 8.6-10.4 [facility] Comment on above: Performed By: #### C DP, CP #### [facility] [address] [place], [place] [phone] Coffee Blender: Willis Hough MD Chloride [Moles/Vol] 104 mmol/L Normal 98-107 [facility] Comment on above: Performed By: #### C DP, CP #### [facility] [address] [place], [place] [phone] Coffee Blender: Willis Hough MD CO2 [Moles/Vol] 21 mmol/L Normal 20-31 [facility] Comment on above: Performed By: #### C DP, CP #### [facility] [address] [place], [place] [phone] Coffee Blender: Willis Hough MD Creatinine [Mass/Vol] 0.5 mg/dL Normal 0.5-0.9 [facility] Comment on above: Performed By: #### C DP, CP #### [facility] [address] [place], [place] [phone] Coffee Blender: Willis Hough MD GFR/1.73 sq M.predicted among non-blacks MDRD (S/P/Bld) [Vol rate/Area] mL/min/{1.73_m2} Normal >60 [facility] Comment on above: Result Comment: These results are not intended for use in patients <18 years of age. eGFR results are calculated without a race factor using the 2020 CKD-EPI equation. Careful clinical correlation is recommended, particularly when comparing to results calculated using previous equations. The CKD-EPI equation is less accurate in patients with extremes of muscle mass, extra-renal metabolism of creatine, excessive creatine ingestion, or following therapy that affects renal tubular secretion. Performed By: #### C DP, CP #### [facility] [address] [place], [place] [phone] Coffee Blender: Willis Hough MD Glucose [Mass/Vol] 78 mg/dL Normal 70-99 [facility] Comment on above: Performed By: #### C DP, CP #### [facility] [address] [place], [place] [phone] Coffee Blender: Willis Hough MD Potassium [Moles/Vol] 3.8 mmol/L Normal 3.7-5.3 [facility] Comment on above: Performed By: #### C DP, CP #### [facility] [address] [place], [place] [phone] Coffee Blender: Willis Hough MD Protein [Mass/Vol] 6.9 g/dL Normal 6.4-8.3 [facility] Comment on above: Performed By: #### C DP, CP #### [facility] [address] [place], [place] [phone] Coffee Blender: Willis Hough MD Sodium [Moles/Vol] 138 mmol/L Normal 135-144 [facility] Comment on above: Performed By: #### C DP, CP #### [facility] [address] [place], [place] [phone] Coffee Blender: Willis Hough MD Urea nitrogen [Mass/Vol] 7 mg/dL Normal 6-20 [facility] Comment on above: Performed By: #### C DP, CP #### [facility] [address] [place], [place] [phone] Coffee Blender: Willis Hough MD Urinalysis, Routineon 2023 Bilirubin, SemiQt,Ur Negative Normal NEG [facility] Comment on above: Performed By: #### U A #### [facility] [address] [place], [place] [phone] Coffee Blender: Willis Hough MD Blood, Urine Negative Normal NEG [facility] Comment on above: Performed By: #### U A #### [facility] [address] [place] [address] [place] [address] Coffee Blender: Willis Hough MD Clarity (U) Clear Normal CLEAR [facility] Comment on above: Performed By: #### U A #### [facility] [address] [place] [address] [place] [address] Coffee Blender: Willis Hough MD Color (U) Yellow Normal YEL [facility] Comment on above: Performed By: #### U A #### [address] [place] [address] Coffee Blender: Willis Hough MD Glucose Ql (U) Negative Normal NEG [facility] Comment on above: Performed By: #### U A #### [facility] [address] [place] [address] [place], [place] [phone] Coffee Blender: Willis Hough MD Ketones Ql (U) Negative Normal NEG [facility] Comment on above: Performed By: #### U A #### [address] [place], [place] [phone] Coffee Blender: Willis Hough MD Leukocyte esterase Test strip Ql (U) Negative Normal NEG [facility] Comment on above: Performed By: #### U A #### [facility] [address] [place] [address] [place], [place] [phone] Coffee Blender: Willis Hough MD Nitrite,Ur Negative Normal NEG [facility] Comment on above: Performed By: #### U A #### [facility] [address] [place] [address] [place] [address] Coffee Blender: Willis Hough MD PH,Ur 6.0 Normal 5.0-9.0 [facility] Comment on above: Performed By: #### U A #### [facility] [address] [place], [place] [phone] Coffee Blender: Willis Hough MD Protein Ql (U) Negative Normal NEG [facility] Comment on above: Performed By: #### U A #### [facility] [address] [place], [place] [phone] Coffee Blender: Willis Hough MD Spec. [place],Ur 1.010 Normal 1.010-1.020 [facility] Comment on above: Performed By: #### U A #### [facility] [address] [place] [address] Coffee Blender: Willis Hough MD Urobilinogen,Ur Normal Normal 0.0-1.0 [facility] Comment on above: Performed By: #### U A #### [facility] [address] [place] [address] Coffee Blender: Willis Hough MD Quick Strepon 12-18-2022 S. pyogenes Org specific cx Ql (Throat) Positive Adreima [facility] [employer] Other Quick Strep [facility] [employer] Other DHEA SERUMon 06-27-2022 Dehydroepiandrosterone (DHEA) 579 ng/dL Normal 31-701 [facility] Comment on above: Result Comment: Age 1 - 5 years 0 - 67 6 - 7 years 0 - 110 8 - 10 years 0 - 185 11 - 12 years 0 - 201 13 - 14 years 0 - 318 15 - 16 years 39 - 481 17 - 19 years 40 - 491 >19 years 31 - 701 Performed By: #### D ADRIAN. #### [facility] [address] [place], [place] [address] Dr. Jeremiah Vallejo US PELVIS AND TRANSVAGon US PELVIS AND TRANSVAG Begin Addendu m #1 VOICE RECOGNITION ERROR CORRECTION Correction made to FINDINGS SECTION; THIRD AND FOURTH PARAGRAPHS. The right ovary is asymmetrically enlarged measuring 7.1 x 4.3 x 3.5 cm. Left ovary is normal in size, contour and echotexture measuring 4.3 x 1.5 x 2.3 cm. Original Report EXAMINATION: US PELVIS AND TRANSVAG HISTORY: Irregular periods COMPARISON: No relevant comparison available. FINDINGS: The uterus is normal in size, contour and myometrial echotexture measuring 6.9 x 3.0 x 4.4 cm. No focal myometrial mass. The uterus is anteverted. Endometrium measures 3.8 mm, normal. The right ovary is symmetrically enlarged measuring 7.1 x 4.3 x 3.5 cm. Normal color and Doppler ultrasound. Normal resistive 0.54. Normal subcentimeter follicles. Area of anechoic echogenicity measuring 3.7 x 2.8 x 2.7 cm. Small amount of periovarian free fluid Left ovary is normal in size, contour and echotexture measuring 4.3 x 1.5 2.3 cm. Normal color and Doppler ultrasound. Normal resistive index of 0.6. Normal subcentimeter follicles. IMPRESSION: 3.7 cm right ovarian simple cyst Normal [facility] ANTI-MULLERIAN HORMONEon Anti-Mullerian Hormone (AMH) 16.2 ng/mL Critically high [facility] Comment on above: Result Comment: For assays employing antibodies, the possibility exists for interference by heterophile antibodies in the samples.1 1.Mike Llanes Interferences in Immunoassays - still a threat. Clin. Chem. 2000; 46: 3235-8474. This test was developed and its performance characteristics determined by [employer]. It has not been cleared or approved by the Food and Drug Administration. Reference Range: Females 20 - 25y: 1.23 - 11.51 Median 4.70 AMH concentrations of >= 1.06 ng/mL is correlated with a better response to ovarian stimulation, produced more retrievable oocytes and higher odds of live according to Gleicher et al. Fertility and Sterility. 2010: 94:3406-2792. The current AMH test method correlates with the study method with a slope of 0.94. Females at risk of ovarian hyperstimulation syndrome or polycystic ovarian syndrome (PCOS) may exhibit elevated serum AMH concentrations. AMH levels from PCOS patients may be 2 to 5 fold higher than age-appropriate reference interval values. Granulosa cell tumors of the ovary may secrete AMH along with other tumor markers. Elevated AMH is not specific for malignancy, and the assay should not be used exclusively to diagnose or exclude an AMH-secreting ovarian tumor. Performed By: #### A LETICIA #### [facility] [address] [place] [address] Dr. Jeremiah Vallejo DHEA-SULFATEon 06-18-2022 DHEA-Sulfate 245.0 ug/dL Normal 110.0-431.7 [facility] Comment on above: Performed By: #### D RITESH #### [facility] [address] [place] [address] Dr. Jeremiah Vallejo FSHon 06-18-2022 FSH 6.9 mIU/mL Normal [facility] Comment on above: Result Comment: Adul t Female: Follicular phase 3.5 - 12.5 Ovulation phase 4.7 - 21.5 Luteal phase 1.7 - 7.7 Postmenopausal 25.8 - 134.8 Performed By: #### L BCFS #### [facility] [address] [place] [address] Dr. Jeremiah Vallejo LUTEINIZING HORMONE (LH)on 1 LH 12.9 mIU/mL Normal [facility] Comment on above: Result Comment: Adul t Female: Follicular phase 2.4 - 12.6 Ovulation phase 14.0 - 95.6 Luteal phase 1.0 - 11.4 Postmenopausal 7.7 - 58.5 Performed By: #### L BCL ####[facility] [address] [address]Dr. Jeremiah Vallejo PROLACTINon 06-18-2022 Prolactin 20.9 ng/mL Normal 4.8-23.3 [facility] Comment on above: Performed By: #### P ROLAC #### [facility] [address] [place] [address] Dr. Jeremiah Vallejo CBC AUTO DIFFon 06-17-2022 BASO # 0.0 103/ul Normal 0.0-0.1 [facility] Comment on above: Performed By: #### C BC #### [facility] [address] [place] [address] Dr. Jeremiah Vallejo Basophils/100 WBC (Bld) 0.5 % Normal 0.2-2.0 [facility] Comment on above: Performed By: #### C BC #### [facility] [address] [place] [address] Dr. Jeremiah Vallejo EO # 0.1 103/ul Normal 0.0-0.7 [facility] Comment on above: Performed By: #### C BC #### [facility] [address] [place] [address] Dr. Jeremiah Vallejo Eosinophils/100 WBC (Bld) 0.9 % Normal 0.9-7.0 [facility] Comment on above: Performed By: #### C BC #### [facility] [address] [place] [address] Dr. Jeremiah Vallejo Erythrocyte distribution width (RBC) [Ratio] 11.9 % Normal 11.0-15.0 [facility] Comment on above: Performed By: #### C BC #### [facility] [address] [place] [address] Dr. Jeremiah Vallejo Hematocrit (Bld) [Volume fraction] 45.8 % Normal 36.0-48.0 [facility] Comment on above: Performed By: #### C BC #### [facility] [address] [place] [address] Dr. Jeremiah Vallejo Hemoglobin (Bld) [Mass/Vol] 15.3 g/dL Normal 12.0-16.0 [facility] Comment on above: Performed By: #### C BC #### [facility] [address] [place] [address] Dr. Jeremiah Vallejo IG # 0.02 10e3/ul Normal 0.00-0.03 [facility] Comment on above: Performed By: #### C BC #### [facility] [address] [place] [address] Dr. Jeremiah Vallejo IG % 0.3 % Normal 0.0-0.5 [facility] Comment on above: Performed By: #### C BC #### [facility] [address] [place] [address] Dr. Jeremiah Vallejo LYMPH # 1.7 103/ul Normal 1.2-3.8 [facility] Comment on above: Performed By: #### C BC #### [facility] [address] [place] [address] Dr. Jermeiah Vallejo Lymphocytes/100 WBC (Bld) 22.0 % Normal 20.5-60.0 [facility] Comment on above: Performed By: #### C BC #### [facility] [address] [place] [address] Dr. Jeremiah Vallejo MANUAL DIFF REQ NO Normal [facility] Comment on above: Performed By: #### C BC #### [facility] [address] [place] [address] Dr. Jeremiah Vallejo MCH (RBC) [Entitic mass] 29.8 pg Normal 26.7-34.0 [facility] Comment on above: Performed By: #### C BC #### [facility] [address] [place] [address] Dr. Jeremiah Vallejo MCHC (RBC) [Mass/Vol] 33.4 g/dL Normal 29.9-35.2 [facility] Comment on above: Performed By: #### C BC #### [facility] [address] [place] [address] Dr. Jeremiah Vallejo MCV (RBC) [Entitic vol] 89.3 fL Normal 81.0-99.0 [facility] Comment on above: Performed By: #### C BC #### [facility] [address] [place] [address] Dr. Jeremiah Vallejo MONO # 0.5 103/ul Normal 0.3-0.8 [facility] Comment on above: Performed By: #### C BC #### [facility] [address] [place] [address] Dr. Jeremiah Vallejo Monocytes/100 WBC (Bld) 6.2 % Normal 1.7-12.0 [facility] Comment on above: Performed By: #### C BC #### [facility] [address] [place] [address] Dr. Jeremiah Vallejo NEUT # 5.5 103/ul Normal 1.4-6.5 [facility] Comment on above: Performed By: #### C BC #### [facility] [address] [address] [address] Jeremiah Vallejo Neutrophils/100 WBC (Bld) 70.1 % Normal 43.0-75.0 [facility] Comment on above: Performed By: #### C BC #### [facility] [address] [address] [address] Jeremiah Vallejo Platelet mean volume (Bld) [Entitic vol] 9.6 fL Normal 9.5-13.5 [facility] Comment on above: Performed By: #### C BC #### [facility] [address] [place] [address] Dr. Jeremiah Vallejo PLT 319 103/ul Normal 150-450 [facility] Comment on above: Performed By: #### C BC #### [facility] [address] [place] [address] Dr. Jeremiah Vallejo RBC 5.13 106/ul Normal 4.20-5.40 [facility] Comment on above: Performed By: #### C BC #### [facility] [address] [place] [address] Dr. Jeremiah Vallejo WBC 7.8 103/ul Normal 4.0-11.0 [facility] Comment on above: Performed By: #### C BC #### [facility] [address] [place] [address] Dr. Jeremiah Vallejo GLYCOHEMOGLOBIN A1Con 2021 ADA RECOMMENDATION SEE BELOW Normal [facility] Comment on above: Result Comment: ADA RECOMMENDED LIMIT 4.0 - 6.0 ADA THERAPEUTIC TARGET < 7.0 ACTION SUGGESTED > 7.0 Performed By: #### A 1C #### [facility] [address] [place] [address] Dr. Jeremiah Vallejo Glucose [Mass/Vol] 100 mg/dL Normal [facility] Comment on above: Performed By: #### A 1C #### [facility] [address] [place] [address] Dr. Jeremiah Vallejo HbA1c (Bld) [Mass fraction] 5.1 % Normal 4.5-6.2 [facility] Comment on above: Performed By: #### A 1C #### [facility] [address] [place] [address] Dr. Jeremiah Vallejo PREG QUANT HCGon 06-17-2022 HCG QUANT 1 mIU/mL Normal [facility] Comment on above: Performed By: #### T SH, PREGQNT #### [facility] [address] [place] [address] Dr. Jeremiah Vallejo HCG RANGE SEE BELOW Normal [facility] Comment on above: Result Comment: 5-50 0.2-1 WEEK 50-500 1-2 WEEKS 100-5,000 2-3 WEEKS 500-10,000 3-4 WEEKS 1,000-50,000 4-5 WEEKS 10,000-100,000 5-6 WEEKS 15,000-200,000 6-8 WEEKS 10,000-100,000 2-3 MONTHS Performed By: #### T AMANDA, PREGQNT #### [facility] [address] [place] [address] Dr. Jeremiah Vallejo TSHon 06-17-2022 TSH 2.065 uIU/mL Normal 0.358-3.740 [facility] Comment on above: Performed By: #### T AMANDA, PREGQNT #### [facility] [address] [place] [address] Dr. Jeremiah Vallejo Vital Signs Date Time Vital Sign Value Performing Clinician Facility 06-02-2024 14:040 Body height 177.8 cm [facility] 06-02-2024 14:31-0400 Body mass index (BMI) [Ratio] 22.1 kg/m2 [facility] 06-02-2024 14:310400 Body temperature 100.6 [degF] [facility] 06-02-2024 14:310400 Body weight 69.85 kg [facility] 06-02-2024 14:31-0400 Diastolic blood pressure 84 mm[Hg] [facility] 06-02-2024 14:31-0400 Heart rate 114 /min [facility] 06-02-2024 14:31-0400 Systolic blood pressure 124 mm[Hg] [facility] 05-24-2024 08:00-0400 Body temperature 97.59 [degF] Cinda Armstrong APRN - CNJocelyne Work Phone: [employer] 05-24-2024 08:00-0400 Diastolic blood pressure 73 mm[Hg] Cinda Armstrong APRN - CNM Work Phone: [employer] 05-24-2024 08:00-0400 Heart rate 77 /min Cinda Armstrong APRN - CNM Work Phone: [employer] 05-24-2024 08:00-0400 Respiratory rate 16 /min Cinda Armstrong APRN - CNJocelyne Work Phone: [employer] 05-24-2024 08:00-0400 Systolic blood pressure 124 mm[Hg] Cinda Armstrong APRN - CNJocelyne Work Phone: [employer] 05-22-2024 10:31-0400 SaO2% (BldA) [Mass fraction] 98 % Cinda Armstrong APRN - CNJocelyne Work Phone: [employer] 12-18-2022 19:20-0400 Body height 175.26 cm Kelle Dumont Other [facility] Other 12-18-2022 19:20-0400 Body mass index (BMI) [Ratio] 19.93 kg/m2 Kelle Dumont Other [facility] Other 12-18-2022 19:20-0400 Body temperature 99.5 [degF] Kelle Dumont Other [facility] Other 12-18-2022 19:20-0400 Body weight 61.24 kg Kelle Dumont Other [facility] Other 12-18-2022 19:20-0400 Respiratory rate 18 /min Kelle Julia Other [facility] Other 12-18-2022 19:20-0400 SaO2% (BldA) [Mass fraction] 99 % Kelle Childmond Other [facility] Other Encounters Encounter Date Encounter Type Care Provider Facility Start: 11-12-2024 End: 11-12-2024 ambulatory [facility]ccrayy [facility] Start: 11-12-2024 End: 11-12-2024 Subsequent hospital visit by physician Lurdes Breaux MD Work Phone: [facility] Comment on above: Amenorrhea; Encounter for supervision of other normal in first trimester Start: 06-02-2024 End: 06-02-2024 ambulatory [facility] Work Phone: Start: 06-02-2024 End: 06-02-2024 Patient encounter procedure [facility] Work Phone: Start: 05-20-2024 End: 05-24-2024 Evaluation and management of inpatient Cinda Armstrong COMMUNICATIONS TECHNOLOGIST - CNM Work Phone: [facility] Start: 05-17-2024 End: 05-17-2024 ambulatory CINDA Mccrayy [facility] Start: 05-08-2024 End: 05-08-2024 ambulatory CINDA Mccrayy [facility] Start: 05-08-2024 End: 05-10-2024 ambulatory [facility] Start: 04-28-2024 End: 04-28-2024 [facility] Start: 04-24-2024 End: 04-24-2024 ambulatory [facility] E T[facility] Start: 12-18-2022 End: 12-18-2022 ambulatory Kelle Dumont Other [facility] Other Start: 12-18-2022 Office outpatient ne w 30 minutes Kelle Dumont [facility] Start: 06-17-2022 End: 06-18-[address] ASHOK CLEMENS Facility:H1 Procedures Date Procedure Procedure Detail Performing Clinician Start: 11-12-2024 End: 11-12-2024 Antibody hiv-1&hiv-2 single result Cinda Armstrong COMMUNICATIONS TECHNOLOGIST - CNM Work Phone: Start: 05-20-2024 Blood count complete auto&auto difrntl wbc Cinda Armstrong COMMUNICATIONS TECHNOLOGIST - CNM Work Phone: Start: 05-20-2024 Blood typing serologic abo Cinda Armstrong COMMUNICATIONS TECHNOLOGIST - CNM Work Phone: Start: 06-14-2023 Microscopic observat ion [Identifier] in Cervix by Cyto stain Cinda Armstrong COMMUNICATIONS TECHNOLOGIST - CNM Work Phone: Plan of Treatment Date Care Activity Detail Author Start: 2072 Respiratory Syncytia l Virus (RSV) or age 60 yrs+ (1 - 1-dose 75+ series) Respiratory Syncytial Virus (RSV) or age 60 yrs+ (1 - 1-dose 75+ series) [facility] Start: 06-14-2026 Screening for malign ant neoplasm of cervix Pap smear [facility] Start: 04-21-2025 Depression Screen Depression Screen [facility] Start: 04-13-2025 End: 04-13-2025 Patient encounter procedure 04/13/2025 4:00 PM EDT Routine [facility] [address] [place] [address] Cinda Armstrong, COMMUNICATIONS TECHNOLOGIST - CNM [address] [place] [address] Dr [address] [place] [address] ISHMAEL 06/17 [facility] Comment on above: ISHMAEL 06/17 Start: 04-13-2025 End: 04-13-2025 Professional / ancillary services management 04/13/2025 3:30 PM EDT Ancillary Procedure [facility] Part of [address] [place] [address] ISHMAEL 06/17 [facility] Part [facility] Comment on above: ISHMAEL 06/17 Start: 02-02-2025 End: 02-02-2025 Patient encounter procedure 02/02/2025 4:00 PM EDT Routine [facility] Part of [address] [place] [address] Cinda Armstrong, COMMUNICATIONS TECHNOLOGIST - CNM [address] [place] [address] Dr [address] [place] [address] OB 20 wk US [facility] Comment on above: OB 20 wk US Start: 02-02-2025 End: 02-02-2025 Professional / ancillary services management 02/02/2025 3:00 PM EDT Ancillary Procedure [facility] Part of [address] [place] [address] OB 20 wk US [facility] Comment on above: OB 20 wk US Start: 01-05-2025 End: 01-05-2025 Patient encounter procedure 01/05/2025 4:00 PM EDT Routine [facility] of [address] [place] [address] Cinda Armstrong, COMMUNICATIONS TECHNOLOGIST - CNJocelyne [address] [place] [address] Dr [address] [place] [address] OB--USs scheduled [facility] Comment on above: OB--USs scheduled Start: 12-03-2024 End: 12-03-2024 Patient encounter procedure 12/03/2024 3:00 PM EDT Routine [facility] Part of [address] [place], [place] [id number] Cinda Armstrong, COMMUNICATIONS TECHNOLOGIST - CNM [address] [place] [address] Dr [address] [place] [address] Return in about 3 years (around 11/12/2027) for OB TBE--USs scheduled [facility] Comment on above: Return in about 3 ye ars (around 11/12/2027) for OB TBE--USs scheduled Start: 06-30-2024 End: 06-30-2024 ambulatory 06/30/2024 10:30 AM EDT Visit [facility] [address] [place], [place] [id number] Cinda Armstrong, COMMUNICATIONS TECHNOLOGIST - CN 27 [facility] [place] [address] [place], [place] [id number] 6 wk PPV [facility] Comment on above: 6 wk PPV Start: 05-18-2024 COVID-19 Vaccine ( season) COVID-19 Vaccine ( season) [facility] Start: 05-18-2024 COVID-19 Vaccine ( season) COVID-19 Vaccine ( season) [facility] Start: 04-17-2024 Influenza vaccination Flu vaccine (# 1) [facility] Start: 05-14-2020 DTaP/Tdap/Td vaccine (7 - Td or Tdap) DTaP/Tdap/Td vaccine (7 - Td or Tdap) [facility] Start: 2012 HPV vaccine (1 - 3-d ose series) HPV vaccine (1 - 3-dose series) [facility] Start: 2010 Varicella vaccine (1 of 2 - 13+ 2-dose series) Varicella vaccine (1 of 2 - 13+ 2-dose series) [facility] End: 11-12-2024 C.trachomatis N.gonorrhoeae DNA, Urine [facility] Comment on above: 1 Occurrences starti ng 11/12/2024 until 11/12/2024 End: 11-12-2024 Culture, Urine [facility] Work Phone: Comment on above: 1 Occurrences starti ng 11/12/2024 until 11/12/2024 Immunizations Immunization Date Immunization Notes Care Provider Jin reddy 05-22-2024 diphtheria, tetanus toxoids and acellular pertussis vaccine, unspecified formulation Cinda Armstrong COMMUNICATIONS TECHNOLOGIST - CNM Work Phone: [facility] 05-22-2024 measles, mumps and rubella virus vaccine Cinda Armstrong COMMUNICATIONS TECHNOLOGIST - CNM Work Phone: [facility] Payers Date Payer Category Payer Unknown [id number] 1997 Unknown [id number] 2.16.84 [id number] 1997 Unknown [id number] 2.16.8 [id number] 1997 Unknown [id number] 2.16.8 [id number] 1997 Unknown [id number] 2.16.8 [id number] 1997 Unknown [id number] 2.16.8 [id number] 1997 Unknown [id number] 2.16.8 [id number] 1997 Unknown [id number] 2.16.8 [id number] 1997 Unknown [id number] 2.16.8 [id number] 1959 Unknown [id number] Unknown [id number] 2.16.8 [id number] Social History Date Type Detail Facility Start: 05-20-2024 End: 05-24-2024 Sex Assigned At [facility] Start: 06-14-2023 End: 06-02-2024 Tobacco smoking status NHIS Never smoked tobacco (finding) [facility] Start: 1995 Sex Assigned At Female F [facility] Start: 06-14-2023 Tobacco use and exposure Smoke less tobacco non-user [facility] Start: 05-22-2024 End: 11-12-2024 Alcoholic beverage intake Ex-drinker (finding) [facility] [employer] Start: 05-20-2024 End: 05-24-2024 History of Social function [facility] Has the electric, ga s, oil, or water [employer] threatened to shut off services in your home in past 12Mo No [facility] Patient Health Questionnaire 9 item (PHQ-9) total score [Reported] 0 [facility] (I/We) worried wheth er (my/our) food would run out before (I/we) got money to buy more. Never true [facility] The thought of rufino ng myself has occurred to me Never [facility] Start: 1995 Sex assigned at Not on file [facility] Start: 09-24-2024 [facility] course Narrative 05-24-2024 Brad Gonzalez MD - 05/24/2024 11:06 AM EDT Note Date & Type Note Facility 05-24-2024 Hospital course Narrative Vaginal Delivery Discharge Summary Gestational Age:39w5d Antepartum complications: none Date of Delivery: Information for the patient's : Landen Lerner [[id number]] 05/22/2024 Type of Delivery: Vaginal Labs: CBC Lab Results Component Value Date HGB 13.0 05/20/2024 HCT 36.7 05/20/2024 Intrapartum complications: None complications: none Discharge Medications: Medication List CONTINUE taking these medications 19 PO The patient is ambulating well. The patient is tolerating a normal diet. Discharged to: Home Discharge Date: 05/24/2024 Plan: Follow up in 2 to 6 weeks Brad Gonzalez MD documented in this encounter [facility] Discharge instructions 05-24-2024 Discharge Instructions Note Date & Type Note Facility 05-24-2024 Hospital Discharg e instructions Uzma Gupta - 05/24/2024 10:02 AM EDT Follow-up with your OB doctor as specified. [facility] OB Department phone: Dr. Lisa Rendon [facility] Dr. Amy Armstrong [facility] [address] [facility] [address] [facility] [address] [place] DIET Eat a well balanced diet focusing on foods high in fiber and protein. Drink plenty of fluids especially water. To avoid constipation you may take a mild stool softener as recommended by your doctor or it intern. ACTIVITY Gradually increase your activity. Resume exercise regimen only after advice by your doctor or it intern. Avoid lifting anything heavier than a gallon of milk for SIX weeks. Avoid driving until your doctor or it intern has given their approval. Rise slowly from a lying to sitting and then a standing position. Climb stairs one at a time. Use caution when carrying your baby up and down the stairs. NO SEXUAL Activity for 6 weeks or until advised by your doctor; Nothing in vagina: intercourse, tampons, or douching. No swimming or tub baths x 6 weeks. Be prepared to discuss family planning at your follow-up OB visit. You may feel tired or have a lack of energy. You may continue your vitamin to replenish nutrients post delivery. Nap when baby naps to catch up on sleep. EMOTIONS You may feel major, sad, teary, & overwhelmed. Contact your OB provider if you feel you may be showing signs of depression, or have thoughts of harming yourself or your . If will not stop crying, contact another adult for help or place infant in their crib on their back and take a break. NEVER shake your infant. BLEEDING Vaginal bleeding will decrease in amount over the next few weeks. You will notice that as your activity increases, your flow may increase. This is your body's way of telling you, you need to take things easier and rest more often. Call your care provider if you are saturating more than one maxi pad in an hour & resting does not help. BREAST CARE Take medications as recommended by your doctor or it intern for pain If you develop a warm, red, tender area on your breast or develop a fever contact your OB provider. For moms: If you become engorged, feeding may be more difficult or painful for 1-2 days. You may find it helpful to hand express some milk so that the infant can latch on more easily. While , continue to take your vitamins as directed by your doctor or it intern. Refer to the booklet in the folder/binder for more information. If you feel you need more assistance or have questions, please call Anastasia Alcocer IBCLC, personal consultant, at or the OB department to schedule an appointment or phone consultation. For more FREE help, visit the Support Group on Sunday evenings at 7 pm in the OB department. For NON- moms: You may apply ice packs to your breasts over your bra for twenty minutes at a time for comfort. Avoid stimulation to your breasts, when showering allow the water to strike your back not your breasts. Wear a good fitting bra until your milk dries, such as a sports bra. INCISIONAL CARE / CANDIDO CARE Use the candido-bottle after toileting until bleeding stops. Cleanse your perineum from front to back If used, stitches will dissolve in 4-6 weeks. You may use a sitz bath or soak in a clean tub as needed for comfort. Kegel exercises will help restore bladder control. SWELLING Try to keep your legs elevated when you are sitting. When lying down keep your legs elevated. When wearing stocking or socks, make sure they are not too tight. WHEN TO CALL THE DOCTOR If you have a temp of 100.6 or more. If your bleeding has increased and you are saturating a pad in an hour. Your abdomen is tender to touch. You are passing blood clots bigger than the size of a lemon. If you are experiencing extreme weakness or dizziness. If you are having flu-like symptoms such as achy muscles or joints. There is a foul smell or a green color to your vaginal bleeding. If you have pain that cannot be relieved. You have persistent burning or frequency with urination. Call if you have concerns about your well-being. You are unable to sleep, eat, or are having thoughts of harming yourself or your baby. You have swelling, bleeding, drainage, foul odor, redness, or warmth in/around your incision or stitches. You have a red, warm, tender area in your calf. documented in this encounter [facility] History of Present illness Narrative 05-23-2024 Anson Alvares APRN - ELIZABETH - 05/23/2024 11:35 AM EDTViv Barraza RN - 05/22/2024 10:36 AM Bambi Callahan RN - 05/20/2024 7:56 PM EDT Note Date & Type Note Facility 05-23-2024 History of Present illness Narrative Images from the original note were not included. POST DAY # 1 Patient Name: Tc Lerner Patient : 1995 Room/Bed: 0207/0207-01 Admission Date/Time: 05/20/2024 7:49 PM [facility] #: [id number] OBGYN Provider: Cinda Armstrong CNM Date: 05/23/2024 Time: 11:35 AM Tc Lerner is a 28 y.o. female This patient was seen today. She Delivered on 05/22/24. Her was complicated by: Patient Active Problem List Diagnosis Abdominal cramping affecting Poor growth affecting management of mother in third trimester Normal labor Normal delivery Today she is doing well without any chief complaint. Her lochia is moderate. She denies chest pain, shortness of breath, headache, lightheadedness, blurred vision, peripheral edema, and palpitations. She is breast feeding and she denies any signs or symptoms of mastitis. These were reviewed with her in detail. She is ambulating well. Her bowels are not regular. Her voiding pattern is Normal. I reviewed signs and symptoms of post depression with the patient, she currently denies any of these symptoms. Vitals: 05/22/24 1942 05/23/24 0110 05/23/24 0431 05/23/24 0752 BP: 131/74 116/60 119/67 119/68 Pulse: 79 77 68 80 Resp: 16 16 16 14 Temp: 97.7 F (36.5 C) 98 F (36.7 C) 97.7 F (36.5 C) 98.2 F (36.8 C) TempSrc: Oral Oral Oral Oral SpO2: Constitutional: Awake, alert, cooperative, no apparent distress. Appears to be bonding well with baby, does not appear overly stressed with infant handling Pain: adequate control with oral meds Breasts: Soft without tenderness, nipples are intact Abdominal Exam: Soft, non-tender, lax muscle tone Fundus is mid-line, firm @ U/-U. Non-tender with palpation. Extremities: Minimal edema Voiding QS, no BM Labs: Lab Results Component Value Date/Time HGB 13.0 05/20/2024 08:22 PM HCT 36.7 05/20/2024 08:22 PM Assessment/Plan: Tc Lerner is a PPD # 1 s/p - Doing well, VSS - male infant in General Care Nursery - Encourage ambulation - Motrin/Tylenol - Discharge planned for tomorrow - RTO in 6 weeks - Counseling Completed: Home care, Follow up Care, and control review completed. Secondary Smoke risks and Sudden Infant Syndrome were reviewed with recommendations.Signs and Symptoms of Post Depression were reviewed. The patient is to call if any occur. Signs and symptoms of Mastitis were reviewed. The patient is to call if any occur for follow up. 2. without difficulty - Breast care reviewed 3. Rh positive - RhoGam not indicated Attending: Dr. Gonzalez Patient actively pushing. RN remains in continuous attendance at the bedside. Assessment & evaluation of heart rate ongoing via continuous EFM. Passenger Agent calls Glynn Armstrong CNM for cervidil induction orders documented in this encounter [facility] Evaluation note 12-18-2022 Note Date & Type Note Facility 12-18-2022 Evaluation note Encounter Date Diagnosis Assessment Notes Dec, Sore throat (ICD-10 - J02.9) Dec, Strep pharyngitis (ICD-10 - J02.0) Follow-up withStrep throat material was printed Drink plenty fluids, get plenty of rest. Take the amoxicillin as prescribed until gone. Take Tylenol or Motrin as needed for aches pains or fevers. Consider drinking warm tea with honey for comfort. Family physician if no improvement in 2 to 3 days. Off work today and tomorrow. [employer] Other Evaluation note Note Date & Type Note Facility Evaluation note No assessment information availa [facility] Work Phone: Evaluation note Note Date & Type Note Facility Evaluation note Diagnosis Normal labor- Primary (normal spontaneous vaginal delivery) Normal delivery documented in this encounter [facility] Evaluation note Note Date & Type Note Facility Evaluation note Diagnosis Amenorrhea Absence of menstruation Encounter for supervision of other normal in first trimester documented in this encounter [facility] Summary Purpose Family History No Family History Records FoundNo Family History Records Found Advance Directives No Advanced Directives Records Found Advance Directive Response Recorded Date/ Time Advance Directives No May 2:14pm Date Activated Date Inactivated Comments 05/20/2024 8:02 PM 05/22/2024 12:25 PM Date Activated Date Inactivated Comments 04/24/2024 12:34 PM 04/24/2024 5:43 PM Chief Complaint and Reason for Visit Chief Complaint fever, breast tender ness, Additional Source Comments INFORMATION SOURCE (unrecogn ized section and content) DATE CREATED AUTHOR 06/27/2022 [facility] DATE CREATED AUTHOR AUTHOR'S ORGANIZ ATION 11/14/2024 [place]ret[place] REASON FOR VISIT (unrecogniz ed section and content) Reason Comments Scheduled Induction Specialty Diagnoses / Procedures Referred By Conttracy t Referred To Contact Diagnoses Normal labor Cinda Armstrong, COMMUNICATIONS TECHNOLOGIST - CNM [address] [place] [address] [facility] [address] [place] [address] Referral ID Status Reason Start Date Expiration Date Visits Re quested Visits Authorized [id number] 1 1 Care Teams (unrecognized sec tion and content) Team Status: Active Member Role Status Dates Lurdes Breaux MD Primary Care Provider Active Team Status: Inactive Member Role Status Dates Lurdes Breaux MD Primary Care Provide r, Attending Provider Active Start: June 02, 2024 End: June 02, 2024 Document Management Analyst Relationship Specialty Start Date End Date Lurdes Breaux MD [address] [place] [address] PCP - General Family Medicine 06/14/23 Document Management Analyst Relationship Specialty Start Date End Date Lurdes Breaux MD [address] [place] [address] PCP - General Family Medicine 06/14/23 Goals (unrecognized section and content) Goals may be documented in a n alternate section Scheduled Active and Recently Administ ered Medications (unrecognized section and content) Medication Order 05/22/2024 05/23/2024 05/24/2024 lidocaine viscous hcl (XYLOCAINE) 2 % solution 15 mL (COMPLETED) 15 mL, Vaginal, ONCE, 1 dose, On Denise 05/22/24 at 1100 1039 (Given - Provider: Viv Barraza, GIOVANY) measles, mumps & rubella vaccine (MMR) injection 0.5 mL 0.5 mL, SubCUTAneous, PRIOR TO DISCHARGE, 1 dose, Starting on Denise 05/22/24 at 1225, Until Discontinued, PRN prior to discharge if patient is known to be rubella non-immune or equivocal status. , sodium chloride flush 0.9 % injection 5-40 mL 5-40 mL, IntraVENous, EVERY 12 HOURS SCHEDULED (2 times per day), First dose on Denise 05/22/24 at 2100, Until Discontinued, For Line Patency: Peripheral IV = 5 mL; Midline or Central Line = 10 mL/lumen. If following IV push medication, administer flush at same rate as the IV push. Flush volume is determined by type of infusion therapy being given. For non-viscous solutions use: Peripheral IV = 5 mL Midline or Central Line = 10 mL/lumen For viscous solutions (i.e. blood components, parenteral nutrition, contrast media, or after obtaining blood sample) use: Peripheral IV = 10 mL Midline or Central Line = 20 mL/lumen, 2100 (Due) 0818 (Not Given - Provider: Uzma Gupta - Reason: Loss of IV access)2100 (Due) 0758 (Not Given - Provider: Uzma Gupta - Reason: Loss of IV access)2100 (Due) srqbdny-altqmb-akxky pertussis (BOOSTRIX) injection 0.5 mL 0.5 mL, IntraMUSCular, PRIOR TO DISCHARGE, 1 dose, Starting on Sun05/22/24 at 1225, Until Discontinued, If not previously administered during at 27-36 weeks as recommended by CDC., Continuous Medication Order 05/22/2024 05/23/2024 05/24/2024 lactated ringers IV soln infusion (CANCELED) IntraVENous, at 125 mL/hr, CONTINUOUS, Starting on Sun05/20/24 at 2030, Labor and Delivery 0535 (Rate/Dose Change - Provider: Paty Olsen RN)0619 (Rate/Dose Verify - Provider: Paty Olsen RN)0647 (Rate/Dose Verify - Provider: Paty Olsen RN)0916 (New Bag - Provider: Viv Barraza RN) oxytocin (PITOCIN) 30 units in 500 mL infusion (CANCELED) 1-24 quoc-units/min (1-24 mL/hr), IntraVENous, CONTINUOUS, Starting on Sun05/22/24 at 0500, Until Denise 05/22/24 at 1225, Begin infusion at 1 quoc-unit/min (1 quoc-unit per min = 1 mL per hour) Then increase by 2 quoc-units/min as needed, no faster than every 30 minutes, until labor is achieved. Labor is defined as contractions every 2-3 minutes with cervical changes or Holden units (MVU) greater than 200 in a 10-minute window. Maximum infusion rate: 20 quoc-unit/min. Contact provider if maximum rate does not achieve desired response. Provider may order alternative titration goal or other clinically appropriate goal of titration rate (s). Smaller titration increments of 1 quoc-units/min, not faster than every 30 minutes, may be used when approaching therapeutic goal. 0545 (New Bag - Provider: Paty Olsen RN)0615 (Rate/Dose Change - Provider: Paty Olsen RN)0619 (Rate/Dose Verify - Provider: Paty Olsen RN)0645 (Rate/Dose Change - Provider: Paty Olsen RN)0647 (Rate/Dose Verify - Provider: Paty Olsen RN)0715 (Rate/Dose Change - Provider: Viv Barraza RN)0745 (Rate/Dose Change - Provider: Viv Barraza RN)0826 (Rate/Dose Change - Provider: Viv Barraza RN)0858 (Rate/Dose Change - Provider: Viv Barraza RN)0914 (Rate/Dose Verify - Provider: Viv Barraza RN)0939 (Rate/Dose Change - Provider: Viv Barraza RN)1010 (Rate/Dose Change - Provider: Viv Barraza RN)1102 (Rate/Dose Change - Provider: Viv Barraza RN)1114 (Rate/Dose Change - Provider: Viv Barraza RN)1115 (Rate/Dose Change - Provider: Viv Barraza RN)1131 (Rate/Dose Verify - Provider: Viv Barraza RN) PRN Medication Order 05/22/2024 05/23/2024 05/24/2024 acetaminophen (TYLENOL) tablet 1,000 mg 1,000 mg, Oral, EVERY 6 HOURS PRN, Starting on Denise 05/22/24 at 1225, Until Discontinued, Pain Mild (1-3), Pain Moderate (4-6), Maximum dose of acetaminophen is 4000mg from all sources in 24 hours. Alternate ibuprofen and acetaminophen every 4 hours., 0010 (Given - Provider: Darling Mckinney RN)0733 (Given - Provider: Uzma Gupta)1421 (Given - Provider: Uzma Gupta) 1034 (Given - Provider: Uzma Gupta) benzocaine-menthol (DERMOPLAST) 20-0.5 % spray Topical, PRN, Pain, Starting on Denise 05/22/24 at 1225, Apply to perineal area. Patient is capable and may self administer at bedside., 1442 (Given - Provider: Viv Barraza RN) carboprost (HEMABATE) injection 250 mcg 250 mcg, IntraMUSCular, PRN, Starting on Denise 05/22/24 at 1225, Until Discontinued, bleeding, May repeat every 15 minutes up to a cumulative maximum dose of 1000 mcg, at physician's request., docusate sodium (COLACE) capsule 100 mg 100 mg, Oral, 2 TIMES DAILY PRN, Starting on Denise 05/22/24 at 1225, Until Discontinued, Constipation, Do not crush or break., ibuprofen (ADVIL;MOTRIN) tablet 800 mg 800 mg, Oral, EVERY 8 HOURS PRN, Starting on Denise 05/22/24 at 1225, Until Discontinued, Pain Mild (1-3), Pain Moderate (4-6), Once tolerating PO, discontinue Ketorolac and begin ibuprofen 8 hours after the final dose of Ketotolac. Alternate ibuprofen and acetaminophen every 4 hours., 1742 (Given - Provider: Viv Barraza RN) 1956 (Given - Provider: Darling Mckinney, GIOVANY) 06 (Given - Provider: Darling Mckinney, GIOVANY) lactated ringers bolus 1,000 mL (CANCELED)(Linked Group 1) 1,000 mL, IntraVENous, at 1,935.5 mL/hr, Administer over 31 Minutes, PRN, Give prior to epidural placement. May be repeated if a second epidural/spinal procedure is performed., Starting on Sun05/20/24 at 1957, Labor and Delivery 0403 (New Bag - Provider: Paty Olsen RN)0404 (Rate/Dose Change - Provider: Paty Olsen RN)0503 (Stopped - Provider: Paty Olsen RN)0503 (See Alternative - Provider: Paty Olsen, GIOVANY)0535 (See Alternative - Provider: Paty Olsen RN)0535 (See Alternative - Provider: Paty Olsen, RN) lactated ringers bolus 500 mL (CANCELED)(Linked Group 1) 500 mL, IntraVENous, at 967.7 mL/hr, Administer over 31 Minutes, PRN, Intrauterine resuscitation for hypertonus, tachysystole, non-reassuring status, or as prescribed by the physician. Every hour as needed, nurse may repeat bolus., Starting on Sun05/20/24 at 1957, Labor and Delivery 0403 (See Alternative - Provider: Paty Olsen RN)0404 (See Alternative - Provider: Paty Olsen RN)0503 (See Alternative - Provider: Paty Olsen RN)0503 (New Bag - Provider: Paty Olsen RN)0535 (Stopped - Provider: Paty Olsen RN)0535 (Rate/Dose Change - Provider: Paty Olsen RN) lansinoh lanolin ointment Topical, PRN, Dry Skin, nipple discomfort, Starting on Sun05/22/24 at 1225, methylergonovine (METHERGINE) injection 200 mcg 200 mcg, IntraMUSCular, PRN, Starting on Denise 05/22/24 at 1225, Until Discontinued, Bleeding, PRN for post- hemorrhage, if not hypertensive., miSOPROStol (CYTOTEC) tablet 800 mcg 800 mcg, Rectal, PRN, 1 dose, Starting on Denise 05/22/24 at 1225, Until Discontinued, Post- Hemorrhage, Notify Physician prior to administration., ondansetron (ZOFRAN) injection 4 mg(Linked Group 2) 4 mg, IntraVENous, EVERY 6 HOURS PRN, Starting on Denise 05/22/24 at 1225, Until Discontinued, Nausea, Vomiting, Administer if oral route cannot be used., ondansetron (ZOFRAN-ODT) disintegrating tablet 4 mg(Linked Group 2) 4 mg, Oral, EVERY 6 HOURS PRN, Starting on Denise 05/22/24 at 1225, Until Discontinued, Nausea, Vomiting, oxytocin (PITOCIN) 10 unit bolus from the bag(Linked Group 3) 999 mL/hr, IntraVENous, PRN, 1 dose, Starting on Sun05/20/24 at 1957, Until Discontinued, Bleeding, For Post Use Only. Give after delivery of placenta. On provider order Bolus for bag to infuse at 999 ml/hour for 20 minutes . oxytocin (PITOCIN) 30 units in 500 mL infusion(Linked Group 3) 166 quoc-units/min (166 mL/hr), IntraVENous, PRN, 1 dose, Starting on Sun05/20/24 at 1956, Until Discontinued, Bleeding, For Post Use Only. Give after delivery of placenta. Following Bolus from bag administration, reduce the rate to166 mL/hr and administer remaining bag witch dudley-glycerin (TUCKS) pad Topical, PRN, Hemorrhoids, Starting on Sun05/22/24 at 1225, Apply to perineal area. Patient is capable and may self administer at bedside., 1442 (Given - Provider: Viv Barraza RN) Linked Groups Order Group 1: lactated ringers bolus 500 mL (CANCELED)Jump to med 500 mL, IntraVENous, at 967.7 mL/hr, Administer over 31 Minutes, PRN, Intrauterine resuscitation for hypertonus, tachysystole, non-reassuring status, or as prescribed by the physician. Every hour as needed, nurse may repeat bolus., Starting on Sun05/20/24 at 1956, Labor and Delivery Or lactated ringers bolus 1,000 mL (CANCELED)Jump to med 1,000 mL, IntraVENous, at 1,935.5 mL/hr, Administer over 31 Minutes, PRN, Give prior to epidural placement. May be repeated if a second epidural/spinal procedure is performed., Starting on Sun05/20/24 at 7, Labor and Delivery Group 2: ondansetron (ZOFRAN-ODT) disintegrating tablet 4 mgJump to med 4 mg, Oral, EVERY 6 HOURS PRN, Starting on Denise 05/22/24 at 1225, Until Discontinued, Nausea, Vomiting, Or ondansetron (ZOFRAN) injection 4 mgJump to med 4 mg, IntraVENous, EVERY 6 HOURS PRN, Starting on Denise 05/22/24 at 1225, Until Discontinued, Nausea, Vomiting, Administer if oral route cannot be used., Group 3: oxytocin (PITOCIN) 30 units in 500 mL infusionJump to med 166 quoc-units/min (166 mL/hr), IntraVENous, PRN, 1 dose, Starting on Sun05/20/24 at 195, Until Discontinued, Bleeding, For Post Use Only. Give after delivery of placenta. Following Bolus from bag administration, reduce the rate to166 mL/hr and administer remaining bag And oxytocin (PITOCIN) 10 unit bolus from the bagJump to med 999 mL/hr, IntraVENous, PRN, 1 dose, Starting on Sun05/20/24 at 1957, Until Discontinued, Bleeding, For Post Use Only. Give after delivery of placenta. On provider order Bolus for bag to infuse at 999 ml/hour for 20 minutes . FOR RECORDS PERTAINING TO PATIENTS WHO ARE OR HAVE BEEN ENROLLED IN A CHEMICAL DEPENDENCY/SUBSTANCEABUSE PROGRAM, SOME INFORMATION MAY BE OMITTED. This clinical summary was aggregated from multiple sources. Caution should be exercised in using it in the provision of clinical care. This summary normalizes information from multiple sources, and as a consequence, information in this document may materially change the coding, format and clinical context of patient data. In addition, data may be omitted in some cases. CLINICAL DECISIONS SHOULD BE BASED ON THE PRIMARY CLINICAL RECORDS. [employer] provides no warranty or guarantee of the accuracy or completeness of information in this document.
--- NOTE | 2024-11-21 22:29 | ED.EXTPRO1 ---
HPI - Extremity Problem General Chief complaint: Extremity Problem, Nontraumatic Stated complaint: RIGHT UPPER EXTREMITY PAIN AND BRUISING Time Seen by Provider: 11/21/24 22:11 Source: patient Mode of arrival: walk-in History of Present Illness HPI Narrative: cc = bruising and skin color change right upper extremity The patient underwent venipuncture at another facility in her right upper extremity -specifically the right antecubital fossa -and during the process, while the patient was getting blood drawn, near the end the needle had moved and they were not able to get additional blood draw, consistent with passing that needle through the vein and no longer accessing the vein. She is not having any pain, bruising or redness at the site of the venipuncture. Instead she is having skin color changes including bruising noted to the medial aspect of the right upper extremity and rating down toward the elbow on the right side. There was some tenderness in some of the soft tissue areas, which has dissipated now. She was concerned because some of the coloration has a brownish, darker reddish tint to it. That area is not tender. She has no systemic symptoms such as vomiting or fever. She was concerned about a possible infection. She is about 10 weeks No associated chest pain or shortness of breath. No increased swelling of the right upper extremity Related Data Allergies Allergy/AdvReac Type Severity Reaction Status Date / Time No Known Drug Allergies Allergy Verified 11/21/24 21:46 PFSH PFSH Social History Little interest or pleasure in doing things: not at all Feeling down, depressed, or hopeless: not at all Exam Narrative Exam Narrative: Nurses notes and vital signs reviewed and patient is not hypoxic. afebrile General: Well-appearing and in no apparent distress. Skin: Warm, dry, no pallor noted. No urticarial rash. See description of the right upper extremity in the musculoskeletal section below Head: Normocephalic, atraumatic. Eye: Pupils are equal, round and EOMI. No scleral icterus. Cardiovascular: Regular Rate and Rhythm without murmur, gallop or rub. Respiratory: No accessory muscle use or respiratory distress. Lungs are clear to auscultation, no wheezing, rales or rhonchi Musculoskeletal: Right upper extremity = diffuse, patchy ecchymosis noted to the medial aspect of the right upper extremity, ranging from the proximal forearm to the distal upper arm and encompassing a portion of the skin overlying the medial elbow. Most of the discoloration has a classic bruise spectrum with yellows, blues and purpleish tones. There is a small area noted approximately 1 cm diameter that has more of a rigo or reddish and dark purple tone to it. That area is not tender to palpation. There is a little bit of soft tissue tenderness and some the areas of bruising. The area of venipuncture is normal without any tenderness, swelling, firmness or other areas suggesting acute phlebitis. The entire right upper extremity has normal ROM no edema/swelling. Neurological: A&O x4. No cranial nerve dysfunction observed. No truncal ataxia. Moves all extremities. Sensation intact. Psychiatric: Cooperative and interactive. Normal mood and affect. Constitutional Vital Signs, click to edit/add: Last Vital Signs Temp 98.5 F 11/21/24 21:39 Pulse 91 H 11/21/24 21:39 Resp 16 11/21/24 21:39 BP 157/97 H 11/21/24 21:39 Pulse Ox 100 11/21/24 21:39 O2 Del Method Room Air 11/21/24 21:39 Course Vital Signs Vital signs: Vital Signs Temperature 98.5 F 11/21/24 21:39 Pulse Rate 91 H 11/21/24 21:39 Respiratory Rate 16 11/21/24 21:39 Blood Pressure 157/97 H 11/21/24 21:39 Pulse Oximetry 100 11/21/24 21:39 Oxygen Delivery Method Room Air 11/21/24 21:39 Temperature 98.5 F 11/21/24 21:39 Pulse Rate 91 H 11/21/24 21:39 Respiratory Rate 16 11/21/24 21:39 Blood Pressure 157/97 H 11/21/24 21:39 Pulse Oximetry 100 11/21/24 21:39 Oxygen Delivery Method Room Air 11/21/24 21:39 MDM - Extremity (Nontraumatic) MDM Narrative Medical decision making narrative: The patient's distribution of ecchymosis and findings are consistent with a venipuncture in which the vein was compromised and there was a leak of blood into the surrounding subcutaneous tissue and fascial planes. I do not detect anything concerning for acute infection. She does not have any firmness or palpable mass and the softness of the tissue was not consistent with acute deep venous thrombosis. We talked about reasons to return the emergency department including swelling that develops in the right upper extremity, chest pain, shortness of breath or pain and/or firmness developing in the area of the right upper extremity. We discussed the application of heat to the area to help break down this ecchymosis. Discharge Plan Discharge Chief Complaint: Extremity Problem, Nontraumatic Clinical Impression: Superficial bruising of arm Patient Disposition: Home, Self-Care Time of Disposition Decision: 22:36 Print Language: [place] Instructions: Ecchymosis (ED) Referrals: Lars Sanders DO [Primary Care Provider] - 1 week
== END 2024-11-21 22:42 | disposition home or self-care (01) ==
PROVIDERS: Emergency Provider Emergency Medicine; PCP Internal Medicine
DX: O99.891 Other specified diseases and conditions complicating pregnancy (principal); S40.021A Contusion of right upper arm, initial encounter; X58.XXXA Exposure to other specified factors, initial encounter; Z3A.10 10 weeks gestation of pregnancy
CPT/HCPCS: 99284